=== PATIENT | female | born 1990 | race African-American/Black ===

== ENCOUNTER 2022-05-25 18:54 | Emergency (ER) | payer OTHER, SELFPAY ==
[2022-05-25 19:11] VITALS: BP 111/70; PULSE 65; RESP 20; TEMP 37.1; O2SAT 100
--- NOTE | 2022-05-25 19:24 | ED.EYEPROB ---
HPI - Eye Problem General Chief complaint: Eye Problems Stated complaint: Swollen eye Time Seen by Provider: 05/25/22 19:24 Source: patient, RN notes reviewed and old records reviewed Mode of arrival: ambulatory Limitations: no limitations History of Present Illness HPI Narrative: 31-year-old female presents to the [facility] with complaints of a right upper and lower swollen eye lids Was prescribed Cipro on Tuesday, 4 days ago and has been using it as prescribed. Normally wears contact lenses. Denies any trauma. States daughter had pinkeye last week. Reports that she has been using the Cipro drops 4 times a day as prescribed. Related Data Home Medications Medication Instructions Recorded Confirmed ciprofloxacin HCl 0.3 % eye drops drp 05/25/22 05/25/22 Allergies Allergy/AdvReac Type Severity Reaction Status Date / Time No Known Allergies Allergy Verified 05/25/22 19:24 Review of Systems Review of Systems: All systems reviewed & are unremarkable except as noted in HPI and below Constitutional: Constitutional: Reports no additional constitutional complaints, Denies chills and Denies fever(s) Eyes: Eyes: Reports as per HPI and Reports change in vision ENT: Reports system reviewed and no additional complaints, except as documented Cardiovascular: Cardiovascular: Reports no additional cardiovascular complaints Respiratory: Respiratory: Reports no additional respiratory complaints Gastrointestinal: Gastrointestinal: Reports no additional gastrointestinal complaints Musculoskeletal: Musculoskeletal: Reports no additional musculoskeletal complaints Integumentary/Breasts: Skin/Breast: Reports system reviewed and no additional complaints, except as docu Neurologic: Reports system reviewed and no additional complaints, except as documented Psychiatric: Psychiatric: Reports no additional psychiatric complaints Allergic/Immunologic: Allergic/Immunologic: Reports no additional allergic/immunologic complaints [facility] Past Medical History Medical History (Updated 05/25/22 @ 20:16 by Sherine Bassett APRN) Patient denies medical problems Surgical History Surgical History (Updated 05/25/22 @ 20:16 by Sherine Bassett APRN) No pertinent past surgical history Social History Social History (Updated 05/25/22 @ 20:16 by Sherine Bassett APRN) Living arrangements: with family Gender identity (if verbalized by the patient): Female Comments At the time of my signature, I reviewed and agree with the nursing past medical, surgical, social, and family history. There is no relevant family history pertinent to the patient complaint. Exam Const: General: healthy appearing, no acute distress and alert Nutritional Appearance: well nourished Orientation/consciousness: patient oriented x3 Limitations: no limitations HENMT: Head: normal to inspection Ears: external ears normal, TM's normal bilaterally and EAC's normal General nose exam: Normal external nose present and Normal nares present Eyes: General: appearance normal, both eyes and all related structures Visual Limon: normal visual limon by confrontation Alignment and Position: alignment normal Periorbital: periorbital findings abnormal right periorbital swelling, periorbital tenderness and periorbital erythema; no ecchymosis and no crepitus Conjunctivae: conjunctival abnormality right conjunctival injection circumcorneal and discharge other (clear tears right eye) Pupils: Equal, round and reactive pupils present EOM: EOMs intact bilaterally Direct Ophthalmoscopy: photophobia Neck: Neck: normal visual inspection, no lymphadenopathy and no meningeal signs Chest: Chest palpation & inspection: normal inspection of the chest Resp: Effort & Inspection: normal respiratory effort and no use of accessory muscles Auscultation: clear to auscultation bilaterally, no crackles, no rales, no rhonchi and no wheezes Cardio: Rate: regular rate Rhythm: regular rhythm B
== END 2022-05-25 19:50 | disposition home or self-care (01) ==
PROVIDERS: Emergency Provider Nurse Practitioner
DX: H10.9 Unspecified conjunctivitis (principal)
CPT/HCPCS: 99213; G0463

== ENCOUNTER 2022-06-04 17:20 | Emergency (ER) | payer OTHER, SELFPAY ==
[2022-06-04 17:41] VITALS: BP 118/73; PULSE 78; RESP 16; TEMP 36.8; O2SAT 100
--- NOTE | 2022-06-04 17:54 | ED.URI ---
HPI - URI/Sore Throat General Chief Complaint: Eye Problems Stated Complaint: joss redness/itchy Time Seen by Provider: 06/04/22 17:54 Source: patient Mode of arrival: ambulatory Limitations: no limitations History of Present Illness HPI Narrative: 31-year-old female presented for complaints of pink eye. Right eye redness, swelling, and pus. She has been treated with tobramycin drops 05/25/22, she states symptoms were improving but her 1-year-old daughter, who had pinkeye approximately 3 weeks ago, squeezed out all of the antibiotic drops. She is requesting a refill on the antibiotic. Pt wears contacts but has not been wearing them for several days. Denies vision changes or photophobia. Related Data Allergies Allergy/AdvReac Type Severity Reaction Status Date / Time No Known Allergies Allergy Verified 06/04/22 18:15 Review of Systems Review of Systems: CONSTITUTIONAL: Denies body aches, fever, chills EYES:Endorses swelling, redness and pain to right eye ENT: Denies rhinorrhea, congestion, sore throat, or otalgia. CARDIOVASCULAR: Denies chest pain, palpitations RESPIRATORY: Denies cough or dyspnea. GASTROINTESTINAL: Denies abdominal pain, nausea, vomiting, or diarrhea. SKIN: Denies rash, itching, or wounds. MUSCULOSKELETAL: Denies back pain, joint pain, or myalgia. NEUROLOGIC: Denies headache, numbness, tingling, or weakness. All systems reviewed & are unremarkable except as noted in HPI and below PMFSH Past Medical History Medical History Patient denies medical problems Surgical History Surgical History No pertinent past surgical history Social History Social History Gender identity (if verbalized by the patient): Female Comments At time of signature, I have reviewed and agree with nursing past medical, surgical, social and family history unless otherwise noted. Please see nursing chart for further information. There is no relevant family history pertinent to the presenting complaint Exam Narrative: GENERAL: Well-appearing HEAD: Normocephalic, atraumatic. EYES: Right conjunctival injection, moderate eye lid swelling/redness and purulent drainage; EOMI. Lid eversion showed no FB ENT: Mucous membranes pink and moist. SKIN: Warm, dry, no rash. Normal skin turgor. NEURO: No focal deficits. Alert and oriented x3 PSYCH: Normal affect. Course Course Emergency Course: Patient is aware of diagnosis, understands and agrees to treatment plan. Anticipatory guidance given. Patient agrees to follow-up as directed and is aware of reasons to seek care at the emergency department. Portions of this record may have been created with voice recognition software Level of Care: Express Care Visit Vital Signs Vital signs: Vital Signs Temperature 98.3 F 06/04/22 17:41 Pulse Rate 78 06/04/22 17:41 Respiratory Rate 16 06/04/22 17:41 Blood Pressure 118/73 06/04/22 17:41 Pulse Oximetry 100 06/04/22 17:41 Oxygen Delivery Room Air 06/04/22 17:41 Temperature 98.3 F 06/04/22 17:41 Pulse Rate 78 06/04/22 17:41 Respiratory Rate 16 06/04/22 17:41 Blood Pressure 118/73 06/04/22 17:41 Pulse Oximetry 100 06/04/22 17:41 Oxygen Delivery Room Air 06/04/22 17:41 MDM - URI/Sore Throat MDM Narrative Medical decision making narrative: We will send refill for tobramycin since she states this was improving her symptoms. She is advised on supportive treatments and close follow-up. Verbalized understanding. She is appropriate for outpatient treatment and follow-up. Differential Diagnosis Differential diagnosis: Likely other (Allergic reaction, angioedema, dermatitis, cellulitis, blepharitis, stye, dacryoadenitis, conjunctivitis) Discharge Plan Discharge Clinical Impression: Acute bacterial conjunctivitis of rig
== END 2022-06-04 18:12 | disposition home or self-care (01) ==
PROVIDERS: Emergency Provider Nurse Practitioner Family
DX: H10.31 Unspecified acute conjunctivitis, right eye (principal)
CPT/HCPCS: 99213; G0463

== ENCOUNTER 2025-06-04 08:16 | Emergency (ER) | payer OTHER, SELFPAY ==
[2025-06-04 08:24] VITALS: BP 123/81; PULSE 101; RESP 16; TEMP 37.7; O2SAT 100
--- NOTE | 2025-06-04 08:25 | ED_ITS ---
HPI - Back Pain/Injury General Chief Complaint: Back Pain/Injury Stated Complaint: Back Pain Time Seen by Provider: 06/04/25 08:56 Source: patient and RN notes reviewed Mode of arrival: ambulatory Limitations: no limitations History of Present Illness HPI Narrative: 34-year-old female presents concern for left upper back/trapezius area pain. Reports she began having pain at work recently and went to the emergency room where she was prescribed 800 mg ibuprofen and muscle relaxers. Reports she took muscle relaxers for 5 days, take ibuprofen daily. She has also been taking Tylenol. Reports her symptoms improve so she went back to work yesterday. Reports today the pain returned and her workplace wanted her to be evaluated. She denies any new injury or trauma. She did have x-rays in the emergency room which were normal. MD elicited complaint: back pain Related Data Allergies Allergy/AdvReac Type Severity Reaction Status Date / Time No Known Allergies Allergy Verified 06/04/25 08:22 Review of Systems Review of Systems: CONSTITUTIONAL: Denies malaise, chills, sweats, or fever. CARDIOVASCULAR: Denies chest pain, palpitations, or edema. RESPIRATORY: Denies cough or dyspnea. GASTROINTESTINAL: Denies abdominal pain, nausea, vomiting, diarrhea, loss of bowel function GENITOURINARY: Denies dysuria, hematuria, frequency, loss of bladder function. SKIN: Denies rash or itching. MUSCULOSKELETAL: Reports left upper back pain NEUROLOGIC: Denies numbness, weakness, or headache. All systems reviewed & are unremarkable except as noted in HPI and below PMFSH Past Medical History Medical History Patient denies medical problems Surgical History Surgical History No pertinent past surgical history Social History Social History Living arrangements: with family Gender identity (if verbalized by the patient): Female Comments At time of signature, agree with nursing past medical, surgical, social and family history. There is no relevant family history pertinent to the presenting complaint Exam Narrative: GENERAL: Well-appearing, well-nourished, and in no acute distress. HEAD: Normocephalic, atraumatic. EYES: PERRLA and EOMI. NECK: Supple. No lymphadenopathy. CHEST: Clear to auscultation. No respiratory distress. HEART: Regular rate and rhythm. Distal pulses palpable and equal, cap refill <3 seconds MUSCULOSKELETAL: Normal range of motion and strength in all extremities; 5/5 strength with shoulder flexion and extension, abduction adduction. Normal sensation in dermatomal distributions with sensitivity to light touch and pain. No midline back tenderness to palpation. No paraspinal tenderness. Transfers from sitting to standing. SKIN: Warm, dry, no rash. NEURO: No focal deficits. Alert and oriented x3. PSYCH: Normal mood and affect Course Course Emergency Course: Patient is aware of diagnosis, understands and agrees to treatment plan. Anticipatory guidance given. Patient agrees to follow-up as directed and is aware of reasons to seek care at the emergency department. Portions of this record may have been created with voice recognition software Level of Care: Express Care Visit Vital Signs Vital signs: Reviewed. MDM - Back Pain/Injury MDM Narrative Medical decision making narrative: I evaluated this in the express care. History is obtained from patient who is an independent historian and physical exam was performed.? Available medical records were reviewed. ? Exam findings and relevant testing show no acute concerns or changes; patient is non-toxic appearing and is in no distress. No risk factors or findings concerning for epidural abscess, diskitis, vertebral osteomyelitis, cord compression, cauda equina, vertebral fracture or bone malignancy, AAA, or pyelonephritis. Patient instructed to consider further imaging and workup through their primary care physician as an outpatient if symptoms persist. ? Differential diagnosis and treatment plan were discussed with the patient. Patient agrees with discussion and after shared medical decision making agrees with plan of care. All questions were answered to the patient's satisfaction. Patient is appropriate for outpatient treatment and follow-up. Critical Care Time Critical Care Time Critical Care Time: No Discharge Plan Discharge Clinical Impression: Strain of left trapezius muscle Patient Disposition: Home Condition: Stable Instructions: Exercises for Shoulder Flexion and Extension (ED) Additional Instructions: Please follow up with your Primary Care Doctor - call for an appointment. Activity as tolerated. Take prednisone as directed, you can continue ibuprofen when the prednisone courses finished, take muscle relaxers every 8 hours as needed for muscle spasm (can consider taking half a tablet at bedtime to avoid drowsiness the next day) - do not drive or make any important decisions while on this medication for it can make you drowsy. You may apply ice to the area as needed. If you experience any worsening pain, swelling, numbness, weakness please go to ER. Contact your doctor or go to the emergency department if you develop problems weakness or loss of feeling in one or both of your legs, or any other serious concerns. Having an established primary care provider is essential to your health. Please call [phone] for help finding a primary care provider in your area that accepts your insurance. Patient Language: Khmer Prescriptions: New prednisone 20 mg tablet 40 mg PO DAILY 5 Days Qty: 10 0RF Follow-up/Referrals: Raoul [place] MD [Physician, Family Practice] PHYSICIAN,PUBLICATION SPECIALIST [Primary Care Provider, Internal Medicine] Stand Alone Forms: Work/School Release IP Time of Disposition: 09:00
== END 2025-06-04 09:10 | disposition home or self-care (01) ==
PROVIDERS: Emergency Provider Nurse Practitioner
DX: S46.812A Strain of other muscles, fascia and tendons at shoulder and upper arm level, left arm, initial encounter (principal); X58.XXXA Exposure to other specified factors, initial encounter; Y99.0 Civilian activity done for income or pay
CPT/HCPCS: 99213; G0463

== ENCOUNTER 2025-06-06 14:07 | Outpatient (CLI) | payer OTHER, SELFPAY ==
--- OUTSIDE RECORDS SUMMARY | 2025-06-06 14:19 | XMS_ITS | Clinical Summary ---
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 Gender Identity Not on file Sexual Orientation Not on file Plan of Treatment Health Maintenance Due Date Last Done Comments Hepatitis C Virus (HCV) Screening 1991 TdaP Immunization 1991 Hepatitis B Immunization (1 of 3 - 19+ 3-dose series) 2010 Human Papillomavirus (HPV) Immunization (1 - 3-dose SCDM series) 2018 SARS-COV-2 Immunization ( - season) 2024 10/30/2021 Influenza Immunization (#1) 2025 Respiratory Syncytial Virus (RSV) Immunization (Adult) (1 - 1-dose 75+ series) 2066 Meningococcal Immunization (ACWY) Aged Out No longer eligible based on patient's age to complete this topic Pneumococcal Immunization Combined Aged Out No longer eligible based on patient's age to complete this topic Rotavirus Immunization Aged Out No lo nger eligible based on patient's age to complete this topic
--- OUTSIDE RECORDS SUMMARY | 2025-06-06 14:19 | XMS_ITS | Clinical Summary ---
Author Organization [facility] Address [address] [place] [address] Care Team Providers Care Lens Blocker Name Role Phone Sameer Alcala MD Primary Care Provider Allergies No known active allergies Medications sertraline (ZOLOFT) 25 mg tablet Take 1 tablet (25 mg total) by mouth daily 30 tablet 11 01/02/20 21 Active Additional Information Patient not taking.Reported on 11/11/2022 naproxen (NAPROSYN) 500 mg tablet Take 1 tablet (500 mg total) by mouth 2 (two) times a day with meals 30 tablet 03/26/20 21 Active Additional Information Patient not taking.Reported on 11/11/2022 baclofen (LIORESAL) 10 mg tablet Take 1 tablet (10 mg total) by mouth 3 (three) times a day 90 tablet 03/26/20 21 Active Additional Information Patient not taking.Reported on 11/11/2022 acetaminophen-code ine (TYLENOL with CODEINE #3) 300-30 mg per tablet Take 1-2 tablets by mouth every 6 (six) hours as needed for pain 10 tablet 07/09/20 22 Active Additional Information Patient not taking.Reported on 11/11/2022 methylPREDNISolone (MEDROL DOSEPACK) 4 mg Dosepack Take 1 tablet (4 mg total) by mouth daily Take as directed on package 1 packet 07/09/20 22 Active Additional Information Patient not taking.Reported on 11/11/2022 doxylamine-pyridox ine, vit B6, (DICLEGIS) 10-10 mg tablet Take 1 tablet by mouth nightly as needed for nausea 30 tablet 3 11/11/19 23 Active famotidine (PEPCID) 20 mg tablet Take 1 tablet (20 mg total) by mouth 2 (two) times a day 60 tablet 11 11/11/19 23 Active pyridoxine (VITAMIN B-6) 50 mg tablet Take 1 tablet (50 mg total) by mouth 2 (two) times a day 60 tablet 3 11/12/19 23 Active doxylamine (UNISOM) 25 mg tablet Take 1 tablet (25 mg total) by mouth nightly 30 tablet 3 11/12/19 23 Active dicyclomine (BENTYL) 10 mg capsuleIndications :Abdominal Pain with Cramps,Irritable Bowel Syndrome Take 1 capsule (10 mg total) by mouth 4 (four) times a day before meals and nightly 30 capsule 10/06/20 23 Active ondansetron ODT (ZOFRAN-ODT) 4 mg disintegrating tablet Take 1 tablet (4 mg total) by mouth every 8 (eight) hours as needed for nausea or vomiting 20 tablet 12/03/19 24 Active Active Problems Problem Noted Date Diagnosed Date Abnormal ultrasound 05/29/2020 Overview (05/29/2020): Will need to check kidneys at 32 weeks. History of pre-eclampsia in prior , currently 04/02/2020 Overview (04/14/2020): First Trimester: [x] Labs [x] Genetic Screeninnd Trimester: [] Anatomy ultrasound 3rd Trimester: [] CBC, HIV, syphilis screen [] 1hr GCT (26-28wks): [] Tdap (27-36wks) [] Rhogam (if Rh neg): [] GBS Asthma 06/18/2011 Overview (04/02/2020): Stable with URBANO lopez. Medical History Medical History Date Comments depression Asthma Pre-eclampsia Family History Medical History Relation Name Comments Heart disease Father Hypertension Father Diabetes Maternal Grandfather Breast cancer Neg Hx Ovarian cancer Neg Hx Pancreatic cancer Neg Hx Prostate cancer Neg Hx Uterine cancer Neg Hx Relation Name Status Comments Father Alive Maternal Grandfather Mother Alive Social History Tobacco Use Types Packs/Day Years Used Date Smoking Tobacco: Former Cigarettes Q uit: 2020 Smokeless Tobacco: Never Tobacco Cessation:Counseling Given: Not Answered Alcohol Use Standard Drinks/Week Comments Not Currently 0 (1 standard drink = 0.6 oz pur e alcohol) [place] Depression Scale Answer Date Recorded [place] Depression Scale Total 1 12/15/2020 The thought of harming myself has occurred to me . Never 12/15/2020 Personal Safety Answer Date Recorded Have you ever been in or are you currently in a harmful physical or emotional relationship or is someone making you feel afraid or unsafe? 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 Gender Identity Not on file Sexual Orientation Not on file Obstetrics History Para Term AB IAB SAB Ectopic Multiple Livin g Live Births 6 3 3 0 2 2 3 2 Date Outcome GA Total Labor Labor/2nd/3rd Weight Sex Type Anes PTL Ginette A1 A5 Name Clin Term 2010 Term 40w 3d 2.845 kg (6 lb 4.4 oz) M Vag-S pont Epidur al Livin g 8 9 LITTLE ,BABY BOY HERMELINDO Brigette jarrell MD Complications:Vacuum-assiste d vaginal delivery Delivery Location:[facility] 2013 Term 38w 6d 0h 08m 0h 08m 3.033 kg (6 lb 11 oz) M Vag-S pont Epidur al N Livin g 8 9 Delivery Location:[facility] Last Filed Vital Signs Vital Sign Reading Time Taken Comments Blood Pressure 108/74 01/03/2024 12:57 PM CDT Pulse 84 01/03/2024 12:57 PM CDT Temperature 37.1 C (98.8 F) 01/03/2024 10:38 AM CDT Respiratory Rate 18 01/03/2024 12:57 PM CDT Oxygen Saturation 100% 01/03/2024 12:57 PM CDT Inhaled Oxygen Concentration - - Weight 71.1 kg (156 lb 12 oz) 01/03/2024 10:38 A M CDT Height 165.1 cm (5' 5) 01/03/2024 10:38 AM CDT Body Mass Index 26.08 01/03/2024 10:38 AM CDT Plan of Treatment Health Maintenance Due Date Last Done Comments Cervical Cancer Screening 1991 Varicella Vaccines (2 of 2 - 2-dose childhood series) 11/17/1998 08/25/1998 Pneumococcal vaccine <65 (1 of 2 - PCV) 2010 HPV Vaccines (1 - 3-dose SCD M series) 2018 Depression Screening 12/15/2021 12/15/2020 Regular Well Visit/Exam 18-64 11/11/2023 11/11/2022 Covid-19 Vaccine (2 - 2023-2 5 season) 2024 10/30/2021 Influenza Vaccine (#1) 2025 08/17/2011 DTaP/Tdap/Td Vaccine (10 - T d or Tdap) 08/11/2030 08/11/2020, 10/15/2014, 01/10/2012, Additional history exists Hepatitis B Screening Completed 09/25/1997 , 08/19/1997, 05/07/1997 Hepatitis C Screening Completed 11/11/2022, 020 Procedures Procedure Name Priority Date/Time Associated Diagnosis Comments HEPATITIS C ANTIBODY Routine 11/11/2022 12:41 PM DENTIST ATTENDANT Missed menses from Last 3 Months or Most Recently Relevant to Health Maintenance Results * Hepatitis C antibody (11/11/2022 12:41 PM DENTIST ATTENDANT) Hep C Ab Nonreactive Nonreactive [facility] Comment: Interpretive Data Nonreactive: Antibodies to HCV not detected. Does NOT exclude the possibility of recent exposure to HCV. Equivocal: Equivocal for HCV antibodies. Supplemental molecular testing will be automatically performed to determine infection status in accordance with current CDC screening recommendations. Reactive: Positive for HCV antibodies. This may represent current or past HCV infection. Supplemental molecular testing will be automatically performed to determine current infection status in accordance with current CDC screening recommendations. Interpretive data was last revised on 2020. Blood 11/11/2022 12:4 1 PM DENTIST ATTENDANT 11/11/2022 2:47 PM DENTIST ATTENDANT us Alyssa Barahona MD LAB MICROBIOLOGY - GENERAL ORDERABLES Final Result [facility] [id number] [facility] Department [place] [address] from Last 3 Months or Most Recently Relevant to Health Maintenance Insurance [facility] [place] [address] Care Teams Lens Blocker Relationship Specialty Start Date End Date Sameer Alcala MD PCP - General Internal Medicine 02/25/20
--- OUTSIDE RECORDS SUMMARY | 2025-06-06 14:19 | XMS_ITS | Clinical Summary ---
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 Name Role Phone Sameer Alcala MD Primary Care Provider [phone] Allergies Active Allergy Reactions Criticality Noted Date Comments Prezgxaak-H-Puknqkq-Selen -Brom Swelling High 01/01/2015 Rasberries Ibuprofen Other (See Comments),Rash,Anaphylax is High 06/18/2011 Medications No known medications Active Problems Problem Noted Date Diagnosed Date Mid back pain 09/15/2018 Upper back pain 09/15/2018 Macromastia 09/15/2018 Obesity (BMI 30.0-34.9) 09/15/2018 Family History Medical History Relation Name Comments No Known Problems Father No Known Problems Maternal Grandfather No Known Problems Maternal Grandmother No Known Problems Mother No Known Problems Paternal Grandfather No Known Problems Paternal Grandmother No Known Problems Sister Relation Name Status Comments Father Alive Maternal Grandfather Alive Maternal Grandmother Alive Mother Alive Paternal Grandfather Alive Paternal Grandmother Alive Sister Alive Social History Tobacco Use Types Packs/Day Years Used Date Smoking Tobacco: Former Cigarettes 1 8 Smokeless Tobacco: Never Alcohol Use Standard Drinks/Week Comments Yes 4 (1 standard drink = 0.6 oz pur e alcohol) weekly Comments No Sex and Gender Information Value Date Recorded Sex Assigned at Not on file Legal Sex Female 3:28 PM CDT Gender Identity Not on file Sexual Orientation Not on file Last Filed Vital Signs Vital Sign Reading Time Taken Comments Blood Pressure 96/65 11/22/2018 1:37 PM [employer] Pulse 82 11/22/2018 1:37 PM [employer] Temperature 36.8 C (98.2 F) 11/22/2018 1:37 PM [employer] Respiratory Rate - - Oxygen Saturation 97% 11/22/2018 1:37 PM [employer] Inhaled Oxygen Concentration - - Weight 86.5 kg (190 lb 12.8 oz) 11/22/2018 1:37 PM [employer] Height 165.1 cm (5' 5) 11/22/2018 1:37 PM [employer] Body Mass Index 31.75 11/22/2018 1:37 PM [employer] Plan of Treatment Health Maintenance Due Date Last Done Comments HPV VACCINES (1 - 3-dose series) 2006 HEPATITIS B VACCINES (1 of 3 - 19+ 3-dose series) 2010 HPV/Cotest (21-29) 2012 CERVICAL CANCER SCREENING 2021 HPV/Cotest (30-65) 2021 PAP SMEAR 2021 DTAP/TDAP/TD VACCINES (3 - Td or Tdap) 10/15/2024, 01/10/2012 INFLUENZA VACCINE (#1) 2025 Insurance 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
--- OUTSIDE RECORDS SUMMARY | 2025-06-06 14:19 | XMS_ITS | Clinical Summary ---
Author Organization [facility] [employer] Address [address] [place] [address] Care Team Providers Care Equipment Processor Name Role Phone Thad Abrams MD Primary Care Provider [phone] Source Comments [facility] [employer],non-owned Affiliates and Associated Physician Practices is amultiple site organization consisting of ambulatory clinics and hospital sitesin [place], [place], [place] and [place]. This disclosure is being madepursuant to the Care Everywhere program and may not contain all information available regarding this patient. Last updated 18.[facility] [employer] Allergies Active Allergy Reactions Criticality Noted Date Comments Food Swelling High 01/01/2015 Rasberries Ibuprofen Rash,Other,Anaphylaxis High 06/18/2011 Oxycodone-Acetaminophen Rash,Itching,Jasiel sea and/or Vomiting Medium 01/10/2016 Medications * Be aware that medications may not be up to date on this document. Alwaysverify current medications with the patient. tobramycin-dexA METHasone (Tobradex) 0.3-0.1 % ophthalmic suspension INSTILL 1 OR 2 DROPS IN AFFECTED EYE(S) FOUR TIMES DAILY 2 Active cetirizine (ZyrTEC) 10 MG tablet cetirizine 10 mg tablet Active Active Problems Patient Care Coordination No te Formatting of this note migh t be different from the original. NOP-[facility] 2014 Problem Noted Date Diagnosed Date Threatened premature labor, antepartum 0 Abnormal ultrasound 05/29/2020 Overview (07/23/2022): Will need to check kidneys at 32 weeks. History of pre-eclampsia in prior , currently 04/02/2020 Overview (07/23/2022): First Trimester: [x] Labs [x] Genetic Screeninnd Trimester: [] Anatomy ultrasound 3rd Trimester: [] CBC, HIV, syphilis screen [] 1hr GCT (26-28wks): [] Tdap (27-36wks) [] Rhogam (if Rh neg): [] GBS Herpes simplex type 1 infection 03/30/2018 Herpes simplex type 2 infection 03/30/2018 Abnormal uterine bleeding (AUB) 01/09/2016 Macromastia 10/15/2015 Former cigarette smoker 10/15/2014 Screening for condition 07/13/2014 Overview (07/17/2015): 1st look on 07/09/14 Result: 1:10,000 for DS and 1:10,000 for Trisomy 18 2nd blood draw ideal dates: 07/30-08/13 Letter sent 07/15 Final result: 1:10,000 DS, 1:10,000 T18, 1:5400 ONTD Low estriol 0.71 MoM recommend screening for IUGR 06/25/2014 Overview (05/23/2019): Dating: Dated by L= 11 week doc US Labs: O+/I/-/- Antibody: neg HIV: neg Hgb/Hct/Plt: 12.4/36.6/212 HgbE: GC/CT: neg Pap: Genetics: Anatomy: GCT: 91 GBS: neg 12/10 Breast/bottle: br Contraception: BTL? Asthma 06/18/2011 Overview (06/18/2011): Stable with PRN advair. Resolved Problems Problem Noted Date Diagnosed Date Resolved Date Contraception management 09/06/201206/2014 Overview (09/06/2012): Nexplanon placed 09/05/12 by Skyla Lopez Right arm Lot # [id number] Encounter for health-related screening 07/09/2011 09/06/2012 Overview (01/14/2018): 1st Look U/S on 07/05/11 2nd Blood Draw optimal dates: 07/25/11-08/08/11 Results: Screen Positive for Trisomy 18 1:[address] Elise on 08/19/11 he is to call patient to explain test results Genetics and Amnio scheduled for 08/26/11 at 10-11am IMO update 01 15 2018 Supervision of normal first 06/18/2011 09/06/2012 Overview (12/18/2011): Dating by: sure LMP Labs: O+/I/-/- H/H (plt): 12.2/36.3/199 GC/CT: neg/neg Pap smear: not done too young Hgb Elec: CF: SS: Urine Culture: negative 28 week labs: GCT: 58 RPR: NR H/H (plt): 11.5/34.7/188 Additional Lab work planned: Consultants: Testing: Delivery Plan: GBS: Pos Breast/Bottle: Family Planning: Immunizations Immunization Administration Dates Next Due INFLUENZA VACCINE 08/17/2011 TDAP (7yrs+) 10/15/2014,01/10/2012 Family History Medical History Relation Name Comments Heart Disease Father Cancer Maternal Aunt breast cancer Diabetes Maternal Aunt insulin-depend ent Relation Name Status Comments Father Alive Maternal Aunt Alive Social History Tobacco Use Types Packs/Day Years Used Date Smoking Tobacco: Former Cigarettes 0.3 1 0 06/05/2010 - 06/05/2011 Smokeless Tobacco: Never Alcohol Use Standard Drinks/Week Comments No 0 (1 standard drink = 0.6 oz pur e alcohol) not since recent AUDIT-C Answer Date Recorded Q1: How often do you have a drink containing alcohol? Never 06/28/2022 Q2: How many drinks containi ng alcohol do you have on a typical day when you are drinking? Patient does not drink Q3: How often do you have si x or more drinks on one occasion? Never 06/28/2022 Comments No Sex and Gender Information Value Date Recorded Sex Assigned at Not on file Legal Sex Female 12:08 PM [employer] Gender Identity Not on file Sexual Orientation Not on file Last Filed Vital Signs Vital Sign Reading Time Taken Comments Blood Pressure 100/56 05/01/2023 11:59 PM CDT Pulse 67 05/01/2023 9:27 PM CDT Temperature 36.6 C (97.8 F) 05/01/2023 5:39 PM CDT Respiratory Rate 18 05/01/2023 5:39 PM CDT Oxygen Saturation 100% 05/01/2023 11:59 PM CDT Inhaled Oxygen Concentration - - Weight 94.8 kg (209 lb) 08/03/2020 5:34 AM CDT Height 165.1 cm (5' 5) 08/03/2020 5:34 AM CDT Body Mass Index 34.78 08/03/2020 5:34 AM CDT Plan of Treatment Health Maintenance Due Date Last Done Comments HEPATITIS B VACCINE (1 of 3 - 19+ 3-dose series) 2010 PNEUMOCOCCAL VACCINE (1 of 2 - PCV) 2010 PAP SMEAR 05/25/2016 05/25/2013 HPV VACCINE (1 - 3-dose SCDM series) 2018 COVID-19 VACCINE (4 - 2023-2 5 season) 2024 10/30/2021, 04/23/2021, 04/02/2021 DTAP/TDAP/TD VACCINES (3 - T d or Tdap) 10/15/2024 10/15/2014, 01/10/2012 DEPRESSION SCREENING 10/17/2024 INFLUENZA VACCINE (#1) 2025 08/17/2011 ZOSTER VACCINE (1 of 2) 2041 HEPATITIS C SCREENING Completed 05/25/2013 HIV SCREENING Completed 06/25/2014, 05/25/2013, 06/18/2011 HIB VACCINE Aged Out No longer eligi ble based on patient's age to complete this topic MENINGOCOCCAL (Group B) VACCINE SHARED DECISION-MAKING Aged Out No longer eligible based on patient's age to complete this topic MENINGOCOCCAL GROUPS A/C/Y/W VACCINE Aged Out No longer eligible b ased on patient's age to complete this topic Procedures Procedure Name Priority Date/Time Associated Diagnosis Comments HIV-1 HIV-2 ANTIBODY Routine 06/25/2014 3:24 PM CDT CYTOLOGY CERVICAL/VAG PAP SCREEN THIN PREP Routine 05/25/2013 2:39 PM CDT HEPATITIS SCREEN ACUTE Routine 05/25/2013 2:39 PM CDT from Last 3 Months or Most Recently Relevant to Health Maintenance Results * HIV-1 HIV-2 ANTIBODY (06/25/2014 3:24 PM CDT) [facility] HIV-1/HIV-2 Non Reactive Non Reactive 06/26/2014 8:45 AM CDT [facility] Blood BLOOD SPECIMEN / Unknown Venipuncture / Unknown 06/25/2014 3:24 PM CDT 06/25/2014 3:34 PM CDT Uche Bosch MD LAB - CHEMISTRY ORDER LUCRECIA Final Result Performing Organization Address City/[facility]/ZIP Co de Phone Number [facility] [address] [place] [address] * CYTOLOGY CERVICAL/VAG SCREEN THIN PREP (05/25/2013 2:39 PM CDT) [facility] ThinPrep Pap See Scanned Report 06/04/2013 1:04 PM CDT [facility] [employer] Miscellaneous samples (specimen) PART OF UTERINE CERVIX / Unknown Collection / Unknown 05/25/2013 2:39 PM CDT 05/25/2013 2:55 PM CDT Dulce Maria Resendiz MD LAB - PATHOLOGY/CYTOLOGY OR DERABLES Final Result [facility] [address] [place] [address] * HEPATITIS SCREEN ACUTE (05/25/2013 2:39 PM CDT) [facility] HAV Antibody IgM Non Reactive Non Reactive 05/25/2013 4:28 PM CDT [facility] HBsAg Non Reactive Non Reactive 05/25/2013 4:28 PM CDT [facility] HBc Antibody IgM Non Reactive Non Reactive 05/25/2013 4:28 PM CDT [facility] HCV Antibody Screen Non Reactive Non Reactive 05/25/2013 4:28 PM CDT [facility] Blood BLOOD SPECIMEN / Unknown Venipuncture / Unknown 05/25/2013 2:39 PM CDT 05/25/2013 2:54 PM CDT Narrative [facility] - 05/25/2013 4:28 PM CDT Nonreactive - Antibodies to HCV were not detected, result does not exclude early acute HCV infection. Dulce Maria Resendiz MD LAB - CHEMISTRY ORDERABLES Final Result [facility] [address] [place] [address] from Last 3 Months or Most Recently Relevant to Health Maintenance Insurance [facility] PAYOR GENERIC PAYOR GENERIC Advance Directives * Full Code (Latest Code Status on File) Date Activated Date Inactivated Comments 01/01/2015 8:52 PM 01/04/2015 3:20 PM * FULL RESUSCITATION Date Activated Date Inactivated Comments 01/08/2012 8:09 AM 01/12/2012 1:11 AM Care Teams Equipment Processor Relationship Specialty Start Date End Date Thad Abrams MD [address] [place] [address] PCP - General Obstetrics and Gynecology 05/23/19
[2025-06-06 16:23] LABS: Hematocrit 37.2 % (37.0-47.0); Hemoglobin 12.0 g/dL (12.0-15.0); Immature Granulocyte Percent A 0.2 % (0-0.5); Lymphocytes Absolute Auto 3.67 K/mm3 (0.9-3.2); Mean Corpuscular HGB Conc 32.3 g/dl (32-36); Mean Corpuscular Hemoglobin 28.3 pg (26-34); Mean Corpuscular Volume 87.7 fl (80-100); Nucleated Red Blood Cells Absolute Auto 0.000 K/mm3 (0.0-0.012); Nucleated Red Blood Cells Perc 0.0 % (0.0-0.2); Platelet Count Result 233 k/mm3 (150-375); Red Blood Count 4.24 M/mm3 (4.2-5.4); White Blood Count 9.5 K/mm3 (4.5-10.0)
[2025-06-06 16:31] LABS: Alanine Aminotransferase 19 U/L (6-35); Albumin Level 4.6 g/dL (3.5-5.1); Alkaline Phosphatase 82 U/L (38-126); Anion Gap 6 mmol/L (4-12); Aspartate Amino Transferase 63 U/L (14-36); Bilirubin,Total 0.3 mg/dL (0.2-1.3); Blood Urea Nitrogen 15 mg/dL (7-17); Calcium 9.3 mg/dL (8.4-10.2); Carbon Dioxide 27 mmol/L (22-30); Chloride 106 mmol/L (98-107); Cholesterol 157 mg/dL (0-200); Estimated Glomerular Filt Rate > 60; Glucose 78 mg/dL (65-110); HDL Direct 68 mg/dL; Magnesium 1.9 mg/dL (1.6-2.3); Potassium 3.4 mmol/L (3.4-5.0); Sodium 139 mmol/L (137-145); Total Protein 7.9 g/dL (6.3-8.2); Triglycerides 98 mg/dL (<150)
[2025-06-06 17:00] LABS: Thyroid Stimulating Hormone Reflex 0.837 uIU/mL (0.465-4.68)
[2025-06-06 17:24] LABS: Vitamin B12 400.0 pg/mL (239-931)
[2025-06-06 17:42] LABS: Hemoglobin A1C 4.2 % (<5.7)
== END 2025-06-06 14:08 | disposition home or self-care (01) ==
LOC: ANHGOSHLAB 14:08
PROVIDERS: PCP Nurse Practitioner Family; Visit Provider Nurse Practitioner Family
DX: F41.9 Anxiety disorder, unspecified (principal); E55.9 Vitamin D deficiency, unspecified; R73.9 Hyperglycemia, unspecified
CPT/HCPCS: 36415; 80053; 80061; 82306; 82607; 83036; 83735; 84443; 85025